=== PATIENT | female | born 1960 ===

== ENCOUNTER 2019-04-20 16:38 | Outpatient (REF) | payer BC, SELFPAY ==
[2019-04-20 17:12] LABS: Abs Immature Grans 0.17 k/cumm (0.0-0.09); Absolute Basophil Count 0.02 k/cumm (0.0-0.2); Absolute Monocyte Count 0.72 k/cumm (0.11-0.7); Basophils % 0.1; Eosinophils % 0.6; HCT 31.1 % (36.0-46.0); HGB 9.1 g/dL (12.0-15.5); Lymphocytes % 12.1; Mean Corp. HGB Concentration 29.3 g/dL (32.0-36.0); Mean Corpuscular Hemoglobin 27.9 pg (27.0-33.0); Mean Corpuscular Volume 95.4 fL (80-95); Monocytes % 4.3; Neutrophils % 81.9; RBC 3.26 m/cumm (4.00-5.20); RBC Distribution Width 17.7 % (11.7-14.6); White Blood Cell Count 16.73 k/cumm (4.4-10.8)
[2019-04-20 17:14] LABS: ALT 34 U/L (14-59); AST 56 U/L (15-37); Albumin 2.2 g/dL (3.4-5.0); Alkaline Phosphatase 280 U/L (46-116); Anion Gap 10.7 mmol/L (3-11); BUN 4 mg/dL (7-18); Bilirubin, Total 0.4 mg/dL (0.2-1.0); C-Reactive Protein 16.79 mg/dL (0.0-0.3); CO2 28.3 mmol/L (21.0-32.0); CREATININE 0.47 mg/dL (0.55-1.02); Chloride 100 mmol/L (98-107); Glucose 96 mg/dL (74-106); Potassium 4.6 mmol/L (3.5-5.1); Sodium 139 mmol/L (136-145); Total Protein 8.2 g/dL (6.4-8.2)
[2019-04-20 18:32] LABS: Absolute Lymphocyte Count 2.02 k/cumm (1.2-3.4)
[2019-04-20 18:38] LABS: Platelet Count 835 x1000/uL (130-400)
[2019-04-20 18:40] LABS: Anisocytosis 1+; Diff Comment Diff Reviewed
== END 2019-04-20 16:58 ==
LOC: LBN 16:38
PROVIDERS: PCP Internal Medicine; Visit Provider Internal Medicine
DX: K57.92 Diverticulitis of intestine, part unspecified, without perforation or abscess without bleeding (principal); K65.1 Peritoneal abscess; K63.1 Perforation of intestine (nontraumatic); Z43.3 Encounter for attention to colostomy; Z48.01 Encounter for change or removal of surgical wound dressing
CPT/HCPCS: 80053; 85025; 86140